=== PATIENT | female | born 1960 | race Caucasian/White ===

== ENCOUNTER → 2016-09-14 | Outpatient (REF) | LOC: ZLAB.WCH 08:41 | DX: Z01.89 Encounter for other specified special examinations (principal) ==

== ENCOUNTER 2018-12-09 08:20 | Day surgery (SDC) | payer SELFPAY ==
[2018-12-09] VITALS (12 sets, daily range): BP systolic 134–178; BP diastolic 71–86; PULSE 58–77; TEMP 98.5
[~2018-12-09] VITALS: Ht 177.8 cm; Wt 115.0 kg
[2018-12-09 08:56] LABS: HEMATOCRIT 46.8 % (37.0-47.0); HEMOGLOBIN 15.5 g/dl (12.5-16.0); MEAN CELL VOLUME 92 fl (80.0-100.0); MEAN CORPUSCULAR HEMOGLOBIN 31 pg (27.0-31.0); MEAN CORPUSCULAR HGB CONC 33 g/dl (33.0-37.0); MEAN PLATELET VOLUME 12.1 fl (7.4-10.4); PLATELET COUNT 223 K/mm3 (130-400); RED BLOOD COUNT 5.09 M/mm3 (4.10-5.30); REDCELL DISTRIBUTION WIDTH-CV 13.7 % (11.5-14.5)
[2018-12-09] MEDS ORDERED: ZESTRIL 20MG TA20 MG PO (09:00)
[2018-12-09] MEDS ORDERED: NORCO 325 MG-101 TAB PO (09:00)
[2018-12-09] MEDS ORDERED: BLACK COHOSH40 MG PO (09:00)
[2018-12-09] MEDS ORDERED: DEMADEX 20MG20 M1 PO (09:01)
[2018-12-09] MEDS ORDERED: K-DUR20 MEQ PO (09:01)
[2018-12-09] MEDS ORDERED: ASPIRIN E.C. 8181 MG PO (09:02)
[2018-12-09] MEDS ORDERED: MULTI VITAMINS1 TAB PO (09:02)
[2018-12-09 09:34] LABS: INR 1.1 (0.8-3.0); PROTHROMBIN TIME 12.3 SECONDS (9.7-12.8)
[2018-12-09 09:42] LABS: CALCIUM 9.4 mg/dL (8.4-10.2); CREATININE, serum 0.68 (0.52-1.25); POTASSIUM 3.9 mmol/L (3.4-5.0)
--- NOTE | 2018-12-09 09:59 | NUR ---
SEE MERGE REPORT FOR MEDICATION ADMINISTRATION TIMES WELL INTRA/POST SEDATION ASSESSMENTS. PT SECURED TO PROCEDURE TABLE WITH SAFETY STRAP PRIOR TO PROCEDURE.
[2018-12-09] MEDS ORDERED: PRAVACHOL 20MG20 MG PO (11:23)
[2018-12-09] MEDS ORDERED: TIAZAC120 MG PO (11:23)
[2018-12-09] MEDS ORDERED: OMEGA-3 1000 MG1 CAP PO (11:25)
--- NOTE | 2018-12-09 11:30 | NUR ---
Pt returned to EU 10 per bed s/p heart cath. Pt resting well, family at bedside.
--- NOTE | 2018-12-09 11:47 | NUR ---
Pt transported to room EU 10 for recovery. Pt connected to bedside vital signs and ECG monitoring equipment per protocol. Bedside report to Denae CAPUTO. Right radial site stable with band aid dressing clean, dry and intact. Right femoral site stable with sterile dressing clean, dry and intact. Distal pulses remain unchanged at +1. Family and bedside and all questions answered.
--- NOTE | 2018-12-09 16:00 | NUR ---
Pt has ambulated, voided and brit PO intake s n/v. PIV removed with catheter intact.
--- NOTE | 2018-12-09 16:20 | NUR ---
Pt discharged per w/c by nurse with family.
== END 2018-12-09 17:46 | disposition home or self-care (01) ==
LOC: COL.CAR 08:20
PROVIDERS: Internal Medicine Cardiovascular Disease
DX: R94.39 Abnormal result of other cardiovascular function study (principal); I10 Essential (primary) hypertension; F17.200 Nicotine dependence, unspecified, uncomplicated; Z88.0 Allergy status to penicillin; Z82.49 Family history of ischemic heart disease and other diseases of the circulatory system
CPT/HCPCS: J1644; J2250; J3010; Q9967